=== PATIENT | male | born 1960 | race Hispanic/Latino ===

== ENCOUNTER 2017-10-24 09:57 | Emergency (ER) | payer OTHER ==
[~2017-10-24] VITALS: Ht 172.7 cm; Wt 90.5 kg
[2017-10-24] MEDS ORDERED: ONDANSETRON HCL INJ 2 MG/ML VIAL IV STA (10:41)
[2017-10-24] MEDS ORDERED: MORPHINE SULFATE 5 MG/ML VIAL IV ONE (10:45)
[2017-10-24] MEDS ORDERED: GADOBENATE DIMEGLUMINE 1 ML IV ONE (12:56)
--- NOTE | 2017-10-24 15:13 | Diagnostic Imaging Report ---
EXAMINATION: MRI of the lumbar spine without and with contrast contrast HISTORY:Low back pain radiating to the left, prior spine surgery on 11/28/2016 COMPARISON:None available TECHNIQUE: Sagittal T1, T2, STIR; axial T2 and proton density. Post contrast axial and sagittal T1 fat sat. Intravenous contrast: 20 mL of MultiHance FINDINGS: It is assumed that there are 5 lumbar vertebrae. Postoperative changes: Posterior fusion from L4 to S1 with bilateral transpedicular screws. Interbody metallic grafting at L4-L5 and L5-S1. Curvature/Alignment: Mild kyphotic alignment at L1-L2. Normal distal lumbar lordosis. Mild left-sided curvature. Vertebrae: No evidence of recent fracture, infection, or neoplasm. Chronic endplate degenerative changes at L1 and L2. Conus: Normal, terminating at T12-L1 Cauda equina: Unremarkable. No abnormal enhancement. Lower thoracic: Unremarkable. Paraspinal soft tissues: Expected posterior paraspinal musculature atrophy from L4 to the sacrum. Approximately 3.5 cm superior to inferior x 1.5 cm in AP diameter and about 3 transverse diameter low T1 and high T2 signal intensity fluid collection at the L5 laminectomy site, no associated enhancement. The collection is abutting the dorsal thecal sac without mass effect or stenoses. Degenerative changes: L1-L2: Mild symmetric disc bulge without stenosis L2-L3: Mild symmetric disc bulge and facet arthrosis without significant stenoses L3-L4: Minimal symmetric disc bulge, ligamenta flava thickening, prominence of the dorsal epidural fat and facet arthrosis. Mild canal narrowing. No foraminal stenosis. L4-L5: Surgical level without stenoses. L5-S1: Surgical level, left foraminal disc/extra foraminal/far lateral disc protrusion may be abutting the exiting left L5 nerve root. Magnetic susceptibility artifact from hardware limits evaluation of the foramen. IMPRESSION: 1. Postoperative changes from L4 to S1 with a small fluid collection at the L5 laminectomy site, likely resolving seroma. No associated mass effect. 2. Possible left foraminal/extraforaminal disc herniation at L5-S1 which may be compressing the exiting left L5 nerve root, magnetic susceptibility artifact limits evaluation. Comparison to prior studies is recommended. 3. Mild upper lumbar kyphoscoliosis. Signed by: Dr. Bebe Marin M.D. on 10/24/2017 3:10 PM
== END 2017-10-24 16:04 | disposition home or self-care (01) ==
LOC: FSED 09:57 → ER 16:04
DX: M54.5 Low back pain (principal); M54.16 Radiculopathy, lumbar region
CPT/HCPCS: 72158; 74176; 80053; 81003; 85025; 96374; 96375; 99284; J2270; J2405